=== PATIENT | male | born 1965 | race Caucasian/White ===

== ENCOUNTER 2017-02-25 18:34 | Emergency (ER) | payer OTHER ==
[2017-02-25 18:44] VITALS: BP 150/89; PULSE 84; TEMP 98.8; BMI 28.7
[2017-02-25] MEDS ORDERED: KETOROLAC TROMETHAMINE 60 MG/2 ML VIAL IM ONE (20:02)
[2017-02-25] MEDS ORDERED: KETOROLAC TROMETHAMINE 60 MG/2 ML VIAL ONE (20:07)
--- NOTE | 2017-02-25 20:10 | PDOC ---
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; no hx reported Occurred: reports: this evening Severity: reports: mild Pain Location: reports: pelvis Method of Injury: No: fall Past History - Past Medical History Allergies/Adverse Reactions: Allergies Allergy/AdvReac Type Severity Reaction Status Date / Time aspirin AdvReac GI UPSET Verified 02/25/17 18:42 Home Medications: Ambulatory Orders Albuterol Sulfate Inhaler - [Ventolin HFA Inhaler -] 2 inh IH Q4H PRN #1 inh Azithromycin [Zithromax Z-LORIE (5 DAYS)] 250 mg PO ASDIR #6 tablet 09/05/12 No Home Medications 0 dose .ROUTE UTDICT 09/05/12 - Psycho/Social/Smoking Cessation Hx Anxiety: No Suicidal Ideation: No Smoking Status: No Smoking History: Never smoked Number of Cigarettes Smoked Daily: 0 Review of Systems - Review of Systems Constitutional: No: Chills, Fever, Loss of Appetite HEENTM: No: Symptoms Reported Respiratory: No: Symptoms reported, Cough : No: Testicular Mass, Testicular Swelling, Testicular Pain *Physical Exam - Vital Signs Last Vital Signs Temp Pulse Resp BP Pulse Ox 98.8 F 84 18 150/89 99 02/25/17 18:42 02/25/17 18:42 02/25/17 18:42 02/25/17 18:42 02/25/17 18:42 - Physical Exam General Appearance: Yes: Appropriately Dressed. No: Apparent Distress HEENT: positive: TMs Normal, Pharynx Normal Neck: positive: Supple. negative: Rigid Respiratory/Chest: positive: Lungs Clear Male Genitalia: positive: other (small swollen mass to right thigh just distal to inguinal area anterior). negative: testicular tenderness, testicular mass Medical Decision Making - Medical Decision Making 02/25/17 20:08 testicular and inguinal exam= wnl; feels like muscle strain rather then hernia; will suggest rest and reevaluation in 3 days with local MD *DC/Admit/Observation/Transfer Diagnosis at time of Disposition: Muscle strain - Discharge Dispostion Disposition: HOME Condition at time of disposition: Stable Admit: No - Patient Instructions Additional Instructions: PLease rest area; advil 400mg 3 times daily; see local MD in 2-3 days for reevaluation, very important - Post Discharge Activity Work/School Note: Back to Work
== END 2017-02-25 20:26 | disposition home or self-care (01) ==
LOC: JERFT 18:34
PROC: 3E0333Z Introduction of Anti-inflammatory into Peripheral Vein, Percutaneous Approach (ICD-10-PCS; principal; 2017-02-25)
DX: S76.911A Strain of unspecified muscles, fascia and tendons at thigh level, right thigh, initial encounter (principal); X58.XXXA Exposure to other specified factors, initial encounter; Y93.9 Activity, unspecified; Y92.9 Unspecified place or not applicable
CPT/HCPCS: 99281-25

== ENCOUNTER 2019-01-22 10:15 | Emergency (ER) | payer BC, OTHER ==
[2019-01-22 10:37] VITALS: BP 129/74; PULSE 64; TEMP 98; BMI 30.8
--- NOTE | 2019-01-22 10:58 | PDOC ---
History of Present Illness - General Chief Complaint: Pain, Acute Stated Complaint: LEFT LEG PAIN Time Seen by Provider: 01/22/19 10:44 History Source: Patient Exam Limitations: No Limitations - History of Present Illness Initial Comments: 01/22/19 10:44 states was running for bus and had acute onset of pain to right calf. States is the upper aspect of his calf muscle, no bone tenderness, no knee injury, cannot twisted ankle. 01/22/19 14:29 Occurred: reports: just prior to arrival, this morning Severity: reports: mild, moderate Pain Location: reports: lower extremity Associated Symptoms (Fall): denies symptoms Past History - Travel Traveled outside of the country in the last 30 days: No Close contact w/someone who was outside of country & ill: No - Past Medical History Allergies/Adverse Reactions: Allergies Allergy/AdvReac Type Severity Reaction Status Date / Time aspirin AdvReac GI UPSET Verified 01/22/19 10:32 Home Medications: Ambulatory Orders Ibuprofen [Ibu] 800 mg PO TID PRN 01/22/19 COPD: No - Suicide/Smoking/Psychosocial Hx Smoking Status: No Smoking History: Never smoked Number of Cigarettes Smoked Daily: 0 Review of Systems - Review of Systems Able to Perform ROS?: Yes Is the patient limited Beninese proficient: Yes Constitutional: Yes: Symptoms Reported, See HPI HEENTM: No: Symptoms Reported Respiratory: No: Symptoms reported : No: Symptoms Reported Musculoskeletal: Yes: Symptoms Reported, See HPI, Muscle Pain Neurological: Yes: Symptoms reported All Other Systems: Reviewed and Negative *Physical Exam - Vital Signs Last Vital Signs Temp Pulse Resp BP Pulse Ox 98 F 64 16 129/74 99 01/22/19 10:36 01/22/19 10:36 01/22/19 10:36 01/22/19 10:36 01/22/19 10:36 - Physical Exam General Appearance: Yes: Nourished, Appropriately Dressed, Apparent Distress, Mild Distress Neck: positive: Supple Gastrointestinal/Abdominal: positive: Soft Musculoskeletal: positive: Normal Inspection, Muscle Spasm (and tenderness without obvious defect to the upper aspect of gastroc muscle , Achilles is intact, able to plantar flex and extend but this mechanism reproduces pain to the upper aspect of that muscle group. No knee pain, neurovascular intact to foot.) Extremity: positive: Normal Capillary Refill, Normal Range of Motion, Tender Integumentary: positive: Normal Color, Dry, Warm. 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, Fully Oriented, Alert, Normal Mood/ Affect, Normal Response, Motor Strength /5 Progress Note - Progress Note Progress Note: Muscle strain to right lower leg/gastrocnemus/ Hai wrap applied, has came to use at home, and we'll treat with NSAIDs MO E *DC/Admit/Observation/Transfer Diagnosis at time of Disposition: Muscle strain - Discharge Dispostion Disposition: HOME Condition at time of disposition: Stable Decision to Admit order: No - Referrals Referrals: Damian Savage DO [Staff Physician] - - Patient Instructions Printed Discharge Instructions: DI for Muscle Strain Additional Instructions: Rest, ice to area on and off for 15 minutes 4-6 times a day Avoid heavy lifting or exercise until pain and swelling is resolved or until further directed Keep area highly elevated to reduce swelling Use splints/Hai wrap as directed Followup with orthopedist in one to 2 days if not improving, if significantly improved may wait one week for followup with orthopedist May use ibuprofen every 6 hours as needed for pain - Post Discharge Activity Forms/Work/School Notes: Back to Work
== END 2019-01-22 11:19 | disposition home or self-care (01) ==
LOC: JERFT 10:15
DX: S86.111A Strain of other muscle(s) and tendon(s) of posterior muscle group at lower leg level, right leg, initial encounter (principal); Y93.02 Activity, running; Y93.89 Activity, other specified; Y92.480 Sidewalk as the place of occurrence of the external cause; Y99.8 Other external cause status
CPT/HCPCS: 99281-25

== ENCOUNTER 2019-03-23 04:51 | Emergency (ER) | payer BC ==
[2019-03-23 05:12] VITALS: TEMP 97.8; BMI 30.8
--- NOTE | 2019-03-23 05:13 | PDOC ---
Attending Attestation - Resident Resident Name: Giovana Newell - ED Attending Attestation I have performed the following: I have examined & evaluated the patient, The case was reviewed & discussed with the resident, I agree w/resident's findings & plan - HPI HPI: 03/23/19 06:49 see resident hpi - Physicial Exam PE: 03/23/19 06:49 agree with resident exam - Medical Decision Making 03/23/19 06:50 53-year-old male with an episode of upper chest and throat tightening that he states per vented him from breathing EKG has no acute ST segment changes to suggest ischemia Patient's MB is elevated with negative troponin Plan for sign out to day team for chest x-ray results as well as three-hour cardiac enzymes patient can likely be DC'd with arranged outpatient cardiology follow-up if negative
--- NOTE | 2019-03-23 05:26 | PDOC ---
History of Present Illness - General Chief Complaint: Shortness of Breath Stated Complaint: S.O.B. Time Seen by Provider: 03/23/19 05:12 - History of Present Illness Initial Comments: 03/23/19 05:44 53yo M no PMH presents from home c/o episode of SOB at 0430 this AM. Pt was in [place] yesterday. Pt fell asleep last night on his side and woke up on his back at 0430 this AM feeling like he could not breath. Pt struggled for breath for approx 1-2 seconds per his before he could breath normally again. Pt then coughed a couple times, dry, and felt like he couldn't breath when he was coughing. Now he is breathing fine but is afraid to cough because he's afraid it will happen again. Pt states it now just feels like his throat is tight or closed a bit. Pt states this happens a few times a year for 10-30 years. He recently told his PCP about it and his PCP said he's going to refer him to somebody (unknown). Pt cannot remember his PCP's name. Endorses loud snoring every night. Mother has RACHEL and uses CPAP. Pt denies cardiac hx, CHF, CAD, pulmonary problems, nightmares, paralysis when he woke up, palpitations, chest pain, leg swelling, headache, dizziness, vision changes, itchy throat, swelling of tongue, sore throat, congestion, abdominal pain, D/C, N/V, F/C, blood in stool, hematuria, dysuria, numbness/tingling, weakness, hx DVTs/PE, testosterone or hormone use, allergies, recent travel, recent surgeries, recent illness or sick contacts, hemoptysis, cough prior to this AM. Never seen a ceo or had an echo or stress test. Past History - Past Medical History Allergies/Adverse Reactions: Allergies Allergy/AdvReac Type Severity Reaction Status Date / Time aspirin AdvReac GI UPSET Verified 03/23/19 05:09 Home Medications: Ambulatory Orders Ibuprofen [Ibu] 800 mg PO TID PRN 01/22/19 COPD: No Other medical history: Pt denies - Suicide/Smoking/Psychosocial Hx Smoking Status: No Smoking History: Never smoked Have you smoked in the past 12 months: No Number of Cigarettes Smoked Daily: 0 Information on smoking cessation initiated: No Hx Alcohol Use: No Drug/Substance Use Hx: No Review of Systems - Review of Systems Comments:: 03/23/19 05:44 Constitutional: Negative for chills, fever, fatigue. HENT: Positive for "throat tightness". Negative for sore throat, rhinorrhea, congestion. Eyes: Negative for visual disturbance. Respiratory: Positive for shortness of breath, cough. Negative for wheezing. Cardiovascular: Negative for chest pain, palpitations, and leg swelling. Gastrointestinal: Negative for abdominal pain, blood in stool, constipation, diarrhea, nausea, and vomiting. Genitourinary: Negative for dysuria, flank pain, and hematuria. Musculoskeletal: Negative for myalgias, back pain, and neck pain. Skin: Negative for rash. Neurological: Negative for light-headedness, dizziness, syncope, weakness, numbness and headaches. Psychiatric/Behavioral: Negative for behavioral problems and confusion. *Physical Exam - Vital Signs Last Vital Signs Temp Pulse Resp BP Pulse Ox 97.8 F 68 18 175/98 H 97 03/23/19 05:09 03/23/19 05:09 03/23/19 05:09 03/23/19 05:09 03/23/19 05:09 - Physical Exam Comments: 03/23/19 05:45 Gen: Alert, NAD, comfortable-appearing, sitting up straight, overweight HEENT: PERRL, EOMI, MMM, NCAT. No conjunctival pallor. Sclera are non-icteric. Oropharynx is clear. CV: Regular rate and rhythm. No murmurs, rubs, or gallops. PULM: No resp distress. CTAB, no wheezes, rales, or rhonchi. ABD: soft, NT/ND, no rebound tenderness or guarding, no CVA tenderness. BACK: No TTP of c/t/l-spine. No step-offs or deformities. MSK: No bony deformities. 2+ pulses in all extremities. NEURO: AAOx3. PERRL. No gross CN deficits. Strength and sensation grossly intact throughout. EXTREMITIES: No cyanosis. No clubbing. No edema. No calf tenderness. PSYCH: Normal mood and thought pattern. SKIN: Warm and dry. Normal capillary refill. No rashes. No jaundice. Heart Score/ECG Review - ECG Impressions Comment:: 03/23/19 06:03 Sinus bradycardia, 58bpm, normal axis, TWIs in III, QRS 98ms, QTc 396ms, no ST elevations or depressions. No prior EKG for comparison. ED Treatment Course - LABORATORY CBC & Chemistry Diagram: 03/23/19 05:36 03/23/19 05:36 Medical Decision Making - Medical Decision Making 03/23/19 05:37 53yo M no PMH presents from home c/o episode of SOB at 0430 this AM. Pt was in [place] yesterday. Pt fell asleep last night on his side and woke up on his back at 0430 this AM feeling like he could not breath. Pt struggled for breath for approx 1-2 seconds per his before he could breath normally again. Pt then coughed a couple times, dry, and felt like he couldn't breath when he was coughing. Now he is breathing fine but is afraid to cough because he's afraid it will happen again. Pt states it now just feels like his throat is tight or closed a bit. Pt states this happens a few times a year for 10-30 years. He recently told his PCP about it and his PCP said he's going to refer him to somebody (unknown). Pt cannot remember his PCP's name. Endorses loud snoring every night. Mother has RACHEL and uses CPAP. Pt denies cardiac hx, CHF, CAD, pulmonary problems, nightmares, paralysis when he woke up, palpitations, chest pain, leg swelling, headache, dizziness, vision changes, itchy throat, swelling of tongue, sore throat, congestion, abdominal pain, D/C, N/V, F/C, blood in stool, hematuria, dysuria, numbness/tingling, weakness, hx DVTs/PE, testosterone or hormone use, allergies, recent travel, recent surgeries, recent illness or sick contacts, hemoptysis, cough prior to this AM. Never seen a ceo or had an echo or stress test. Hemodynamically stable, afebrile, lungs CTAB. Most likely obstructive sleep apnea due to hx of snoring, description of episode, obesity, and chronicity of problems - will f/u with PCP for sleep study. Due to throat tightness and SOB, also consider ACS/CO, although HEART score low 3 (age, EKG, obesity) and hx of low suspicion - r/o with EKG and cardiac profile. Low concern for CHF due to lack of hx, lungs CTAB, and lack of leg swelling - r/o with BNP. Low concern for pulmonary etiology of SOB due to lack of cough prior to episode, lack of SOB now, and lungs CTAB, but r/o PNA or COPD with CXR. Wells 0, PERC 1 for age, very low concern for PE due to lack of RFs, no SOB or CP now, no tachycardia, and chronicity of episodes (a few episodes per year for 10-30yrs) - no further testing indicated. Also consider infectious etiologies, anemia, or metabolic derangements - r/o with CMP and CBC. -EKG -CBC, CMP, BNP, Cardiac profile -CXR -Dispo: pending w/u consider d/c vs ACS r/o 03/23/19 06:27 EKG 0525: Sinus bradycardia, 58bpm, normal axis, TWIs in III, QRS 98ms, QTc 396ms, no ST elevations or depressions. No prior EKG for comparison. Labs reviewed. Of note, CK 448, Trop <0.02, BNP 17.6. 03/23/19 06:59 CK-MB 4.5. Will get second cardiac profile 0830 Pending CXR, repeat BP, second cardiac profile. If negative, d/c with PCP f/u for sleep study and cardiology f/u for further evaluation. If CK-MB or trop trending up, consider admit for ACS r/o. Signed out to Dr. Vicente. *DC/Admit/Observation/Transfer Diagnosis at time of Disposition: Throat tightness - Discharge Dispostion Disposition: HOME Condition at time of disposition: Improved Decision to Admit order: No - Referrals Referrals: Rod New MD [Staff Physician] - Kevon Kincaid MD [Staff Physician] - Buzz Sanchez MD [Staff Physician] - - Patient Instructions Printed Discharge Instructions: DI for Obstructive Sleep Apnea -- Adult, DI for Atypical Chest Pain Additional Instructions: You have been seen in the Emergency Department for your throat tightness and difficulty breathing. Your EKG, chest X-ray, and labs, including Troponin (a heart enzyme), show no signs concerning for an emergent condition such as a heart attack or pneumonia. The causes of your symptoms is uncertain at this time , so you will need further evaluation. Follow-up with your primary care doctor within 1 week. Your symptoms sound like you have obstructive sleep apnea (RACHEL), but you will need a referral from your primary care doctor for a sleep study to evaluate this. We have also given you referrals for multiple cardiologists (heart doctors) - call one of them to make an appointment within 1 week for further evaluation of your heart (such as a stress test or echocardiogram). Return to the ED immediately if you experience chest pain, difficulty breathing , dizziness, or any other new or worsening symptom. - Post Discharge Activity
[2019-03-23 05:43] LABS: HEMOGLOBIN 14.3 GM/dL (11.7-16.9); WHITE BLOOD COUNT 4.3 K/mm3 (4.0-10.0)
[2019-03-23 05:52] LABS: HEMATOCRIT 41.8 % (35.4-49); MCH 29.4 pg (25.7-33.7); MCHC 34.1 g/dl (32.0-35.9); MEAN CELL VOLUME 86.1 fl (80-96); MEAN PLT VOLUME 9.2 fl (7.5-11.1); PLATELET COUNT 136 K/MM3 (134-434); RBC 4.85 M/mm3 (4.00-5.60); RDW 13.5 % (11.9-15.9)
[2019-03-23 06:18] LABS: ALBUMIN 3.7 g/dl (3.4-5.0); ALK PHOS 74 U/L (45-117); ANION GAP 5 MMOL/L (8-16); BILIRUBIN,TOTAL 0.8 mg/dL (0.2-1); BLOOD UREA NITROGEN 10.6 mg/dL (7-18); CALCIUM 8.6 mg/dL (8.5-10.1); CHLORIDE 106 mmol/L (98-107); CO2 30 mmol/L (21-32); CREATININE 0.9 mg/dL (0.55-1.3); GLUCOSE,RANDOM 119 mg/dL (74-106); POTASSIUM 3.7 mmol/L (3.5-5.1); SGOT/AST 38 U/L (15-37); SGPT/ALT 42 U/L (13-61); SODIUM 141 mmol/L (136-145)
--- NOTE | 2019-03-23 07:14 | PDOC ---
*Physical Exam - Vital Signs Last Vital Signs Temp Pulse Resp BP Pulse Ox 97.8 F 68 18 175/98 H 97 03/23/19 05:09 03/23/19 05:09 03/23/19 05:09 03/23/19 05:09 03/23/19 05:09 ED Treatment Course - LABORATORY CBC & Chemistry Diagram: 03/23/19 05:36 03/23/19 05:36 - ADDITIONAL ORDERS Additional order review: Laboratory Results 03/23/19 03/23/19 05:36 05:36 Sodium 141 Potassium 3.7 Chloride 106 Carbon Dioxide 30 Anion Gap 5 L BUN 10.6 Creatinine 0.9 Est GFR (CKD-EPI)AfAm 113.41 Est GFR (CKD-EPI)NonAf 97.85 Random Glucose 119 H Calcium 8.6 Total Bilirubin 0.8 AST 38 H ALT 42 Alkaline Phosphatase 74 Creatine Kinase 448 H Creatine Kinase Index 1.0 CK-MB (CK-2) 4.5 H Troponin I < 0.02 B-Natriuretic Peptide 17.6 Total Protein 7.0 Albumin 3.7 03/23/19 05:36 RBC 4.85 MCV 86.1 MCHC 34.1 RDW 13.5 MPV 9.2 D Medical Decision Making - Medical Decision Making Pt was signed out to me by resident Dr. Newell, who explained the presentation , ED course, any pending results, and needed interventions. Pending results include chest x-ray and second cardiac profile at 8:30 am. Pt is currently stable and is lying comfortably. 03/23/19 07:13 Pt describing "scratchy throat" -- providing 500 mL IV NS and 20 mg IV pepcid Repeat BP 170/100, pt with no active chest pressure, vision changes, headache - - will have pt f/u this up with PCP 03/23/19 07:24 Chest x-ray with no acute pathology. Repeat ECG showed no new changes (TWI in III, no prior for comparison) Repeating cardiac profile. 03/23/19 08:29 2nd cardiac profile negative, trop <.02 Pt can f/u outpatient with PCP and cardiology. Strict return precautions provided with pt understanding. 03/23/19 10:02 *DC/Admit/Observation/Transfer Diagnosis at time of Disposition: Throat tightness - Discharge Dispostion Disposition: HOME Condition at time of disposition: Improved Decision to Admit order: No - Referrals Referrals: Kevon Kincaid MD [Staff Physician] - Rod New MD [Staff Physician] - - Patient Instructions Printed Discharge Instructions: DI for Atypical Chest Pain, DI for Obstructive Sleep Apnea -- Adult Additional Instructions: You have been seen in the Emergency Department for your throat tightness and difficulty breathing. Your EKG, chest X-ray, and labs, including Troponin (a heart enzyme), show no signs concerning for an emergent condition such as a heart attack or pneumonia. The causes of your symptoms is uncertain at this time , so you will need further evaluation. Follow-up with your primary care doctor within 1 week. Your symptoms sound like you have obstructive sleep apnea (RACHEL), but you will need a referral from your primary care doctor for a sleep study to evaluate this. We have also given you referrals for multiple cardiologists (heart doctors) - call one of them to make an appointment within 1 week for further evaluation of your heart (such as a stress test or echocardiogram). Return to the ED immediately if you experience chest pain, difficulty breathing , dizziness, or any other new or worsening symptom. - Post Discharge Activity
[2019-03-23] MEDS ORDERED: SODIUM CHLORIDE 500 ML IV STA (07:23)
[2019-03-23] MEDS ORDERED: FAMOTIDINE 20 MG/50 ML IVPB 20 MG/50 ML MG IVPB ONE ×2 (07:23→08:34)
[2019-03-23 10:20] VITALS: BP 169/88; PULSE 72
--- NOTE | 2019-03-23 12:41 | EKG ---
Test Reason : Blood Pressure : / mmHG Vent. Rate : 057 BPM Atrial Rate : 057 BPM P-R Int : 130 ms QRS Dur : 096 ms QT Int : 400 ms P-R-T Axes : 045 029 013 degrees QTc Int : 389 ms SINUS BRADYCARDIA WITH PREMATURE SUPRAVENTRICULAR COMPLEXES OTHERWISE NORMAL ECG WHEN COMPARED WITH ECG OF 23-MAR-2019 05:25, PREMATURE SUPRAVENTRICULAR COMPLEXES ARE NOW PRESENT Confirmed by Tam Garcia MD ([id number]) on 03/23/2019 12:41:14 PM Referred By: Confirmed By:Tam Garcia MD
--- NOTE | 2019-03-23 12:42 | EKG ---
Test Reason : Blood Pressure : / mmHG Vent. Rate : 058 BPM Atrial Rate : 058 BPM P-R Int : 128 ms QRS Dur : 098 ms QT Int : 404 ms P-R-T Axes : 071 029 006 degrees QTc Int : 396 ms SINUS BRADYCARDIA INCOMPLETE RIGHT BUNDLE BRANCH BLOCK BORDERLINE ECG NO PREVIOUS ECGS AVAILABLE Confirmed by Tam Garcia MD ([id number]) on 03/23/2019 12:42:37 PM Referred By: Brooklyn CAZARES Confirmed By:Tam Garcia MD
== END 2019-03-23 10:20 | disposition home or self-care (01) ==
LOC: JER 04:51
PROC: 3E033GC Introduction of Other Therapeutic Substance into Peripheral Vein, Percutaneous Approach (ICD-10-PCS; principal; 2019-03-23)
DX: J39.2 Other diseases of pharynx (principal); R06.02 Shortness of breath
CPT/HCPCS: 36415; 71046-TC-FY; 80053; 82550; 82553; 83880; 84484; 85027; 93005; 93010; 99283-25; J7030

== ENCOUNTER 2021-07-22 12:44 | Emergency (ER) | payer BC, OTHER ==
[2021-07-22 12:50] VITALS: BP 193/81; PULSE 84; TEMP 97; BMI 30.1
[2021-07-22] MEDS ORDERED: ACETAMINOPHEN 500 MG TABLET (FP) PO ONE (13:22)
[2021-07-22] MEDS ORDERED: ACETAMINOPHEN 500 MG TABLET (FP) ONE (13:28)
== END 2021-07-22 14:12 | disposition home or self-care (01) ==
LOC: JERFT 12:44
DX: M25.562 Pain in left knee (principal)
CPT/HCPCS: 73562-TC-LT-FY; 99283-25

== ENCOUNTER 2022-06-19 04:28 | Day surgery (SDC) | payer BC, OTHER ==
[2022-06-18 15:44] VITALS: BMI 33.7
[~2022-06-19 04:28] MED LIST: BUPIVACAINE HCL/PF 0.5% (5 MG/ML) 30 ML VIAL IJ ONE
[2022-06-19] MEDS ORDERED: BUPIVACAINE HCL/PF 0.5% (5MG/ML) 10 ML VIAL ONE (11:03)
[2022-06-19] MEDS ORDERED: ONDANSETRON 4 MG/2 ML VIAL IVPUSH PRN (13:45)
[2022-06-19] MEDS ORDERED: LACTATED RINGERS SOLUTION 1,000 ML IV SCH (13:45)
[2022-06-19] MEDS ORDERED: oxyCODONE HCL 5 MG TABLET PO PRN (13:45)
[2022-06-19] MEDS ORDERED: ONDANSETRON 4 MG/2 ML VIAL ONE (14:27)
[2022-06-19] MEDS ORDERED: MIDAZOLAM HCL 2 MG/2 ML SINGLE DOSE VIAL ONE (14:27)
[2022-06-19] MEDS ORDERED: FENTANYL CITRATE/PF 50 MCG/ML VIAL ONE ×2 (14:27→15:10)
[2022-06-19] MEDS ORDERED: PROPOFOL 20 ML ONE (14:27)
[2022-06-19] MEDS ORDERED: DEXAMETHASONE SOD PHOSPHATE 4 MG/1 ML VIAL ONE (14:27)
[2022-06-19] MEDS ORDERED: LIDOCAINE HCL/PF 2% SDV 5ML VIAL ONE (14:27)
[2022-06-19] MEDS ORDERED: LIDOCAINE 1%/EPI 1:100000 (20 ML MULTI DOSE VIAL) INF ONE (15:01)
[2022-06-19] MEDS ORDERED: BUPIVACAINE HCL/PF 0.5% (5 MG/ML) 30 ML VIAL IJ ONE (15:12)
[2022-06-19 17:13] VITALS: TEMP 97.5
[2022-06-19 19:37] VITALS: RESP 20
[2022-06-19 19:39] VITALS: BP 150/78; PULSE 58
== END 2022-06-19 17:27 | disposition home or self-care (01) ==
LOC: JASU-SURG 04:28
PROVIDERS: ATTEND Orthopaedic Surgery
PROC: 0SBD4ZZ Excision of Left Knee Joint, Percutaneous Endoscopic Approach (ICD-10-PCS; principal; 2022-06-19 12:30)
DX: M23.92 Unspecified internal derangement of left knee (principal)
CPT/HCPCS: 94760

== ENCOUNTER 2024-02-06 13:09 | Emergency (ER) | payer BC ==
[2024-02-06 13:14] VITALS: BP 146/84; PULSE 75; RESP 18; TEMP 98.4; BMI 31.1
[2024-02-06] MEDS ORDERED: IBUPROFEN 600 MG TABLET (FP) PO ONE (14:01)
[2024-02-06] MEDS: IBUPROFEN 600 MG TABLET (FP) PO ONE (14:08)
== END 2024-02-06 14:35 | disposition home or self-care (01) ==
LOC: JER 13:09 → JERFT 13:09
DX: R09.81 Nasal congestion (principal); J02.9 Acute pharyngitis, unspecified; R05.9 Cough, unspecified; R06.02 Shortness of breath; J06.9 Acute upper respiratory infection, unspecified; U07.1 COVID-19
CPT/HCPCS: 0241U-QW; 99283-25